=== PATIENT | female | born 1950 | race Caucasian/White ===

== ENCOUNTER 2017-04-09 08:27 | Emergency (ER) | payer MEDICARE | END 2017-04-09 10:54 | disposition home or self-care (01) | LOC: FER 08:27 | DX: H81.10 Benign paroxysmal vertigo, unspecified ear (principal); I10 Essential (primary) hypertension; E78.00 Pure hypercholesterolemia, unspecified; Z79.899 Other long term (current) drug therapy ==

== ENCOUNTER 2021-09-05 16:39 | Emergency (ER) | payer MEDICARE ==
[2021-09-05 17:32] LABS: BASOPHIL 0.4 % (0-2); EOSINOPHIL 0.5 % (0-7); HCT 43.6 % (37.0-47.0); HGB 14.3 g/dl (12.5-16.0); LYMPHOCYTE 13.5 % (15-48); MCH 30.4 pg (25.0-31.0); MCHC 32.8 g/dL (32.0-36.0); MCV 92.6 fL (78.0-100.0); MONOCYTE 4.3 % (0-12); MPV 10.4 fL (6.0-9.5); NEUTROPHIL 81.2 % (41-80); NRBC 0; PLT 207 K/uL (150-400); RBC 4.71 M/uL (4.20-5.40); RDW 13.2 % (11.5-14.0); WBC 7.5 K/uL (4.0-10.5)
[2021-09-05 17:46] LABS: BILIRUBIN NEGATIVE (NEGATIVE); BLOOD NEGATIVE Ery/uL (NEGATIVE); CLARITY CLEAR (CLEAR); COLOR YELLOW (YELLOW); GLUCOSE (U) NORMAL (NORMAL); LEUKOCYTES NEGATIVE Leu/uL (NEGATIVE); NITRITE NEGATIVE (NEGATIVE); PROTEIN NEGATIVE (NEGATIVE); UROBILINOGEN 0.2 mg/dL (0.2-1.0); pH 7.5 (5.0-9.0)
[2021-09-05 18:04] LABS: ALBUMIN 3.9 g/dL (3.4-5.0); BILIRUBIN - TOTAL 0.4 mg/dL (0.2-1.0); BUN/CREAT RATIO (CALC) 24.6 RATIO; CREATININE 0.65 mg/dL (0.51-0.95); GLOBULIN (CALCULATION) 3.1 g/dL; POTASSIUM 3.9 mmol/L (3.5-5.1)
[2021-09-05 18:09] LABS: LACTIC ACID 0.7 mmol/L (0.4-1.9)
[2021-09-05] MEDS ORDERED: ZOFRAN4 M1 PO (21:47)
== END 2021-09-05 22:27 | disposition home or self-care (01) ==
LOC: FER 16:39
PROVIDERS: Emergency Medicine; Nurse Practitioner Family
DX: I82.890 Acute embolism and thrombosis of other specified veins (principal); R10.84 Generalized abdominal pain; R11.2 Nausea with vomiting, unspecified; I10 Essential (primary) hypertension
CPT/HCPCS: 36415; 71275; 80053; 81003; 83605; 83690; 84484; 85025; 93005; 93970; J7030; Q9967